=== PATIENT | female | born 1955 | race Caucasian/White ===

== ENCOUNTER 2019-04-21 12:25 | Emergency (ER) | payer OTHER ==
[2019-04-21] MEDS ORDERED: HYDROcodone/Acetaminophen 5/325 mg Tablet ONE (14:14)
--- NOTE | 2019-04-21 14:20 | RAD ---
RIGHT TIBIA AND FIBULA 2 VIEWS: DATE: 04/21/2019 HISTORY: Fell down stairs yesterday with right tibia and fibula pain. FINDINGS: The bones are demineralized. There are no signs of fracture or dislocation. IMPRESSION: No evidence of fracture. POS: [facility]
--- NOTE | 2019-04-21 15:03 | CT ---
CT OF RIGHT KNEE PERFORMED WITHOUT CONTRAST ENHANCEMENT: 04/21/19 HISTORY: Patient fell down stairs yesterday with right knee pain. There is no joint effusion present. There is some mild arthritic changes in the knee. Some medial and patellofemoral degenerative change. There is no signs of any tibial plateau fracture. On the sagitta l view, there is some subtle buckling to the posterior cortex and a very subtle nondisplaced fracture of the fibular head. IMPRESSION: Nondisplaced fibular head fracture. POS: [facility]
== END 2019-04-21 15:06 | disposition home or self-care (01) ==
LOC: ERS 12:25
DX: S82.831A Other fracture of upper and lower end of right fibula, initial encounter for closed fracture (principal); I50.9 Heart failure, unspecified; I25.2 Old myocardial infarction; F31.9 Bipolar disorder, unspecified; F20.9 Schizophrenia, unspecified; J44.9 Chronic obstructive pulmonary disease, unspecified; F17.210 Nicotine dependence, cigarettes, uncomplicated; Z86.73 Personal history of transient ischemic attack (TIA), and cerebral infarction without residual deficits; W10.9XXA Fall (on) (from) unspecified stairs and steps, initial encounter
CPT/HCPCS: 99406